=== PATIENT | male | born 1940 ===

== ENCOUNTER → 2017-12-03 | Outpatient (CLI) | payer OTHER ==
[2017-12-03 14:08] LABS: ALT/SGPT 17 U/L (12-78); BLOOD UREA NITROGEN 15 mg/dl (7-18); CALCIUM 8.6 mg/dl (8.5-10.1); CARBON DIOXIDE 27 mmol/L (21-32); CHOLESTEROL 112 mg/dl (0-200); CREATININE 0.98 mg/dl (0.60-1.40); GLUCOSE 93 mg/dl (70-99); SODIUM 139 mmol/L (136-145)
[2017-12-03 14:14] LABS: LDL CHOLESTEROL (DIRECT) 68 mg/dl
== END | disposition home or self-care (01) ==
LOC: C.LABMFLN 09:22
PROVIDERS: ATTEND Family Medicine
DX: Z00.00 Encounter for general adult medical examination without abnormal findings (principal); E78.00 Pure hypercholesterolemia, unspecified; I10 Essential (primary) hypertension

== ENCOUNTER → 2018-06-18 | Outpatient (CLI) | payer OTHER ==
[2018-06-18 17:47] LABS: HEMATOCRIT 41.1 % (42-52); HEMOGLOBIN 13.8 g/dL (14.0-18.0)
[2018-06-18 18:04] LABS: TRANSFERRIN 251 mg/dl (200-360)
== END | disposition home or self-care (01) ==
LOC: C.LABMFLN 13:45
PROVIDERS: ATTEND Family Medicine
DX: K52.9 Noninfective gastroenteritis and colitis, unspecified (principal)

== ENCOUNTER → 2018-06-20 | Outpatient (CLI) | payer OTHER | END | disposition home or self-care (01) | LOC: C.LABMFLN 10:04 | PROVIDERS: ATTEND Family Medicine | DX: K52.9 Noninfective gastroenteritis and colitis, unspecified (principal) ==